=== PATIENT | male | born 1995 | race Hispanic/Latino ===

== ENCOUNTER 2018-09-23 12:11 | Emergency (ER) | payer BC, OTHER ==
--- NOTE | 2018-09-23 13:36 | RAD REPORT ---
EXAM DESCRIPTION: RAD - Knee Left 3 View - 09/23/2018 1:22 pm CLINICAL HISTORY: Left knee pain status post injury FINDINGS: No fracture or dislocation is seen. Medial tissue swelling If the patient continues to have symptoms to suggest an occult fracture, ligamentous or meniscal inju ry then MRI would be recommended
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
--- NOTE | 2018-09-23 14:19 | RAD REPORT ---
EXAM DESCRIPTION: RAD - Lumbar Spine 3 Views - 09/23/2018 2:00 pm CLINICAL HISTORY: Back pain FINDINGS: The alignment of the lumbar spine is satisfactory. No fracture or dislocation is seen. No significant bone or joint abnormality seen
[2018-09-23 14:52] VITALS: BP 126/77; TEMP 97.5; O2SAT 98
== END 2018-09-23 14:45 | disposition home or self-care (01) ==
LOC: ER 12:11
DX: S80.02XA Contusion of left knee, initial encounter (principal); M54.5 Low back pain; V28.0XXA Motorcycle driver injured in noncollision transport accident in nontraffic accident, initial encounter
CPT/HCPCS: 72100; 99282

== ENCOUNTER 2018-11-16 06:33 | Day surgery (SDC) | payer BC ==
[2018-11-13 16:21] LABS: Basophils % 0.5 % (0-1.3); Hematocrit 40.7 % (39.6-49.0); MPV 8.5 fL (7.6-11.3); RBC Red Blood Cell Count 4.43 M/uL (4.33-5.43)
[2018-11-13 16:26] LABS: Protime INR 0.99
[2018-11-13 16:48] LABS: BUN Blood Urea Nitrogen 12 mg/dL (7-18); Bicarbonate 25 mmol/L (21-32); Glucose Level 102 mg/dL (74-106); Potassium 3.8 mmol/L (3.5-5.1); Sodium Level 141 mmol/L (136-145)
--- NOTE | 2018-11-14 07:12 | EKG ---
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
--- OUTSIDE RECORDS SUMMARY | 2018-11-16 06:35 | XMS REPORT ---
:1995 Author Organization e[employer] Care Team Providers Name Role Phone Rakan Santana Provider Role Unavailable Allergies No Known Allergies Problems Problem Type Condition Code Onset Dates Condition Status Problem Closed osteochondral fracture of S72.492D Active distal end of left femur with routine healing, subsequent encounter Problem Traumatic hemarthrosis of knee, S83.92XA Active left, initial encounter Problem Bucket-handle tear of lateral S83.252A Active meniscus of left knee as current injury, initial encounter Problem Knee effusion, left M25.462 Active Problem Pain, joint, knee, left M25.562 Active Problem Sprain of lateral collateral S83.422A Active ligament of left knee, initial encounter Medications No Known Medications Results No Known Results Summary Purpose [employer]ClinicalWorks Submission
--- OUTSIDE RECORDS SUMMARY | 2018-11-16 06:35 | XMS REPORT ---
:1995 Author Organization [employer] Care Team Providers Name Role Phone SantanaRakan Provider Role Unavailable Allergies, Adverse Reactions, Alerts Substance Reaction Event Type N.K.D.A. Info Not Available Non Drug Allergy Problems Problem Type Condition Code Onset Dates Condition Status Assessment Sprain of lateral collateral S83.422A Active ligament of left knee, initial encounter Assessment Traumatic hemarthrosis of knee, S83.92XA Active left, initial encounter Problem Sprain of lateral collateral S83.422A Active ligament of left knee, initial encounter Problem Knee effusion, left M25.462 Active Problem Pain, joint, knee, left M25.562 Active Assessment Pain, joint, knee, left M25.562 Active Assessment Knee effusion, left M25.462 Active Problem Traumatic hemarthrosis of knee, S83.92XA Active left, initial encounter Medications Medication Code Code Instructions Start End Status Dosage System Date Date Tizanidine HCl NDC 84761904850 4 MG Orally Active not defined Ibuprofen NDC 01795556909 800 MG Orally Active not defined Tylenol # 3 NDC 0 300/30mg PO Q 4 September 27October Active one tab hrs prn pain 2018 Results No Known Results Summary Purpose [employer]ClinicalWorks Submission
--- OUTSIDE RECORDS SUMMARY | 2018-11-16 06:35 | XMS REPORT ---
:1995 Author Organization [employer] Care Team Providers Name Role Phone Rakan Santana Provider Role Unavailable Allergies, Adverse Reactions, Alerts Substance Reaction Event Type N.K.D.A. Info Not Available Non Drug Allergy Problems Problem Type Condition Code Onset Dates Condition Status Assessment Closed osteochondral fracture of S72.492D Active distal end of left femur with routine healing, subsequent encounter Assessment Pain, joint, knee, left M25.562 Active Assessment Bucket-handle tear of lateral S83.252A Active meniscus of left knee as current injury, initial encounter Problem Closed osteochondral fracture of S72.492D Active [...] ligament of left knee, initial encounter Medications Medication Code Code Instructions Start End Status Dosage System Date Date Tizanidine HCl ND 36788309203 4 MG Orally Active not defined Tylenol # 3 NDC 0 300/30mg PO Q 4 September 27October Active one tab hrs prn pain 2018 Tizanidine HCl NDC 32071997080 4 MG Orally October 03October Active 1 tablet every 8 hours As 2018 16, as needed needed 2018 Ibuprofen NDC 09810499391 800 MG Orally Active not defined Results No Known Results Summary Purpose [employer] Submission
--- OUTSIDE RECORDS SUMMARY | 2018-11-16 06:35 | XMS REPORT ---
:1995 Author Organization [employer] Care Team Providers Name Role Phone Dick Loomis Provider Role Unavailable Allergies, Adverse Reactions, Alerts Substance Reaction Event Type N.K.D.A. Info Not Available Non Drug Allergy Problems Problem Type Condition Code Onset Dates Condition Status Assessment Closed osteochondral fracture of S72.492A Active distal end of left femur, initial encounter Assessment Acute lateral meniscus tear of S83.282A Active left knee, initial encounter Problem Closed osteochondral fracture of [...] Start End Status Dosage System Date Date Ibuprofen NDC 92650792741 800 MG Orally Active not defined Tylenol # 3 NDC 0 300/30mg PO Q 4 September 27October Active one tab hrs prn pain 2018 Tizanidine HCl NDC 41987240926 4 MG Orally October 03October Active 1 tablet every 8 hours As 2018 16, as needed needed 2018 Results No Known Results Summary Purpose [employer]ClinicalWorks Submission
--- OUTSIDE RECORDS SUMMARY | 2018-11-16 06:35 | XMS REPORT ---
:1995 Author Organization [employer] Care Team Providers Name Role Phone Dick Loomis Provider Role Unavailable Allergies, Adverse Reactions, Alerts Substance Reaction Event Type N.K.D.A. Info Not Available Non Drug Allergy Problems Problem Type Condition Code Onset Dates Condition Status Assessment Acute lateral meniscus tear of S83.282A Active left knee, initial encounter Assessment Pain in joint of left knee M25.562 Active Assessment Closed osteochondral fracture of S72.492A Active distal end of left femur, initial encounter Problem Closed osteochondral fracture of [...] left knee, initial encounter Medications Medication Code System Code Instructions Start Date End Date Status Dosage Ibuprofen [facility] 82328966393 800 MG Orally Active not defined Results No Known Results Summary Purpose eClinicalWorks Submission
--- OUTSIDE RECORDS SUMMARY | 2018-11-16 06:35 | XMS REPORT ---
:1995 Author Organization [employer] Care Team Providers Name Role Phone Rakan Santana Provider Role Unavailable Allergies No Known Allergies Problems Problem Type Condition Code Onset Dates Condition Status Problem Sprain of lateral collateral S83.422A Active ligament of left knee, initial encounter Problem Knee effusion, left M25.462 Active Problem Pain, joint, knee, left M25.562 Active Problem Traumatic hemarthrosis of knee, S83.92XA Active left, initial encounter Medications No Known Medications Results No Known Results Summary Purpose [employer]ClinicalWorks Submission
[2018-11-16] MEDS ORDERED: Ringers Lactate 1,000 ML IV ONE ×2 (06:44→08:45)
[2018-11-16] MEDS ORDERED: CEFAZOLIN/SWI 2gm 2 GM/20 ML SYR ONE (06:44)
[2018-11-16] MEDS ORDERED: FENTANYL CITR 100 MCG/2 ML ONE ×2 (07:16→08:01)
[2018-11-16] MEDS ORDERED: PROPOFOL 200 MG/20 ML VIAL IV ONE ×2 (07:16→07:50)
[2018-11-16] MEDS ORDERED: MIDAZOLAM HCL 2 MG/2 ML INJ ONE (07:17)
[2018-11-16] MEDS ORDERED: LIDOCAINE 2% MPF 5 ML VIAL ONE (07:18)
[2018-11-16] MEDS ORDERED: ONDANSETRON 4 MG/2 ML VIAL ONE (07:18)
[2018-11-16] MEDS ORDERED: BUPIVACAINE 0.25% PF 30 ML VIAL ONE (07:22)
[2018-11-16] MEDS ORDERED: ROCURONIUM 50 MG/5 ML VIAL IV ONE (07:39)
[2018-11-16] MEDS ORDERED: BUPIVACA 0.5%/EPI 0.0005%/PF 30 ML VIAL ONE (08:41)
[2018-11-16] MEDS ORDERED: KETOROLAC 30 MG/ML INJ ONE (09:07)
[2018-11-16] MEDS ORDERED: MEPERIDINE HCL 25 MG/0.5 ML ONE (09:09)
[2018-11-16] MEDS ORDERED: SUCCINYLCHOLINE 20 MG/ML (10 ML) IV ONE (09:26)
--- NOTE | 2018-11-16 09:30 | P.BOP ---
Preoperative diagnosis: left knee lateral meniscus tear, left knee osteochondral injury Postoperative diagnosis: same Primary procedure: left knee arthroscopic partial lateral meniscectomy Secondary procedure: left knee arthroscopic microfracture lateral femoral condyle Other procedure(s): left knee arthroscopic removal of loose body Field Tax Auditor: NONE,NONE Estimated blood loss: <10 cc Specimen: none Findings: see dictation Anesthesia: General Complications: None Implants: none Fluids & blood products: per anesthesia record; TT: 56 mins @300 mmHg Transferred to: Recovery Room Condition: Good
[2018-11-16] MEDS: HYDROMORPHONE HCL 1 MG/ML INJ ONE ×2 (09:43→09:51)
[2018-11-16] MEDS ORDERED: HYDROCODONE/APAP 7.5/325 MG TAB ONE (10:41)
[2018-11-16 10:55] VITALS: BP 134/75; TEMP 97.2; O2SAT 98
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
== END 2018-11-16 11:56 | disposition home or self-care (01) ==
LOC: OR 06:33
PROVIDERS: ATTEND Orthopaedic Surgery Sports Medicine
PROC: 0SQD4ZZ Repair Left Knee Joint, Percutaneous Endoscopic Approach (ICD-10-PCS; 2018-11-16)
PROC: 0SBD4ZZ Excision of Left Knee Joint, Percutaneous Endoscopic Approach (ICD-10-PCS; principal; 2018-11-16 07:30)
DX: S83.272A Complex tear of lateral meniscus, current injury, left knee, initial encounter (principal); M94.8X8 Other specified disorders of cartilage, other site; V86.56XA Driver of dirt bike or motor/cross bike injured in nontraffic accident, initial encounter
CPT/HCPCS: 29881; 29879; 93005; 85025; 80048; 36415; 85610; 85730; J2704 ×2; J0330; J2250; J3010 ×2; J2175; J1170; J0690; J2405

== ENCOUNTER 2019-04-14 17:40 | Emergency (ER) | payer BC ==
--- OUTSIDE RECORDS SUMMARY | 2019-04-14 17:42 | XMS REPORT ---
[...] Start Date End Date Status Dosage Ibuprofen [facility] 33213574344 800 MG Orally Active not defined Results No Known Results Summary Purpose [employer]ClinicalWorks Submission
[2019-04-14] MEDS ORDERED: TETANUS & DIPHTHERIA TOX,ADULT 0.5 ML VIAL ONE (18:04)
--- NOTE | 2019-04-14 18:40 | ER ---
Nurse's Notes [facility] Name: Harsha Talley Age: 24 yrs Sex: Male : 1995 Arrival Date: 04/14/2019 Time: 17:43 Bed 5 Private MD: Diagnosis: Laceration without foreign body of left thumb without damage to nail Presentation: 04/14 17:46 Presenting complaint: Patient states: Sliced skin of the L thumb yesterday with an axe. ca1 Did not seek consult. Applied pressure and dressing. But continued to bleed today. Noted soaked gauze dressing in Triage. Transition of care: patient was not received from another setting of care. Onset of symptoms was April 13, 2019. Risk Assessment: Do you want to hurt yourself or someone else? Patient reports no desire to harm self or others. Initial Sepsis Screen: Does the patient meet any 2 criteria? No. Patient's initial sepsis screen is negative. Does the patient have a suspected source of infection? No. Patient's initial sepsis screen is negative. Care prior to arrival: None. 17:46 Method Of Arrival: Ambulatory ca1 17:46 Acuity: LUTHER 3 ca1 Historical: - Allergies: 17:50 No Known Allergies; ca1 - Home Meds: 17:50 None [Active]; ca1 - PMHx: 17:50 None; ca1 - PSHx: 17:50 Knee surgery; ca1 - Immunization history:: Adult Immunizations up to date, Last tetanus immunization: < 5 years ago Flu vaccine is up to date. - Social history:: Smoking status: Patient/guardian denies using tobacco. - Ebola Screening: : Patient negative for fever greater than or equal to 101.5 degrees Fahrenheit, and additional compatible Ebola Virus Disease symptoms Patient denies exposure to infectious person Patient denies travel to an Ebola-affected area in the 21 days before illness onset No symptoms or risks identified at this time. Screenin:58 Abuse screen: Denies threats or abuse. Nutritional screening: No deficits noted. tw2 Tuberculosis screening: No symptoms or risk factors identified. Fall Risk None identified. Assessment: 17:58 Reassessment: provider at bedside at this time. tw2 18:14 General: Appears in no apparent distress. obese, Behavior is calm, cooperative, tw2 appropriate for age. Pain: Complains of pain in dorsal aspect of proximal phalanx of left thumb. Neuro: Level of Consciousness is awake, alert, obeys commands, Oriented to person, place, time, situation. Cardiovascular: Patient's skin is warm and dry. Respiratory: Airway is patent Respiratory effort is even, unlabored, Respiratory pattern is regular, symmetrical. GI: No signs and/or symptoms were reported involving the gastrointestinal system. : No signs and/or symptoms were reported regarding the genitourinary system. EENT: No signs and/or symptoms were reported regarding the EENT system. Derm: No signs and/or symptoms reported regarding the dermatologic system. Musculoskeletal: No signs and/or symptoms reported regarding the musculoskeletal system. Injury Description: Abrasion sustained to aliyah size dorsal aspect of proximal phalanx of left thumb avulsion was sustained 1 day ago. 19:16 Reassessment: Patient appears in no apparent distress at this time. Patient and/or tw2 family updated on plan of care and expected duration. Pain level reassessed. Patient is alert, oriented x 3, equal unlabored respirations, skin warm/dry/pink. need re-evaluation PRIOR to discharge. 19:45 Reassessment: Patient appears in no apparent distress at this time. Patient is alert, aa1 oriented x 3, equal unlabored respirations, skin warm/dry/pink. Bleeding controlled at this time. Dressing to L thumb D\T\I. Discussed d/c \T\ f/u instructions with pt; denies questions or concerns at this time. Ambulatory to lobby with steady gait. Vital Signs: 17:50 BP 136 / 75; Pulse 86; Resp 17 S; Temp 98(TE); Pulse Ox 99% on R/A; Weight 145.15 kg ca1 (R); Height 6 ft. 1 in. (185.42 cm) (R); Pain 8/10; 19:45 BP 130 / 65; Pulse 85; Resp 16; Temp 97.9; Pulse Ox 98% on R/A; Pain 0/10; aa1 17:50 Body Mass Index 42.22 (145.15 kg, 185.42 cm) ca1 ED Course: 17:43 Patient arrived in ED. rg4 17:49 Triage completed. ca1 17:50 Arm band placed on right wrist. ca1 17:53 Joseph Cortés PA is PHCP. cp 17:53 Joseph Rae MD is Attending Physician. cp 17:57 Caroline Bonds, RN is Primary Nurse. tw2 17:58 Bed in low position. Call light in reach. tw2 18:36 XRAY Finger-Thumb Left In Process Unspecified. EDMS 19:12 Dressings: surgicel, 4x4's, coban with digit splint applied to LEFT thumb at this time, tw2 moderate amount of bleeding note through first gauze compression dressing, C,KHALIF Cortés notified, would like pressure dressing applied and pt bleeding re-evaluated in 15 minutes, JESUS Powell notified as well as JESUS Haines, need discharge papers to be signed PRIOR to pt leaving after re-evaluation. 19:45 No provider procedures requiring assistance completed. Patient did not have IV access aa1 during this emergency room visit. 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 Exp: 04/25/2021. Lot #: [id number]. } Route: IM; Site: right deltoid; 18:59 Follow up: Response: No adverse reaction tw2 Outcome: 18:38 Discharge ordered by . cp 19:45 Discharged to home ambulatory, with friend. aa1 19:45 Condition: good 19:45 Discharge instructions given to patient, friend, Instructed on discharge instructions, follow up and referral plans. medication usage, wound care, Demonstrated understanding of instructions, follow-up care, medications, wound care, Prescriptions given X 1. 19:49 Patient left the ED. aa1 Signatures: Dispatcher [employer] EDMS Yancy Isbell, RN RN aa1 Joseph Cortés PA PA cp Wise, Tara, RN RN tw2 Sunshine Cuellar 4 Sherry Coon RN RN ca1
--- NOTE | 2019-04-14 18:40 | EDPHYS ---
Physician Documentation [facility] Name: Harsha Talley Age: 24 yrs Sex: Male : 1995 Arrival Date: 04/14/2019 Time: 17:43 Bed 5 Private MD: OPAL Physician Joseph Rae HPI: 04/14 18:00 This 24 yrs old Male presents to ER via Ambulatory with complaints of Finger cp Laceration. 18:00 The patient or guardian reports injury, a laceration, irregular. The complaints affect cp the dorsal aspect of proximal phalanx of left thumb. 18:00 Context: resulted from using ax to chop wood. Onset: The symptoms/episode cp began/occurred yesterday. Associated signs and symptoms: Pertinent negatives: cyanosis distally, decreased sensation distally, fever. Patient reports he was using ax when injury occurred and bleeding has persisted since injury. Historical: - Allergies: 17:50 No Known Allergies; ca1 - Home Meds: 17:50 None [Active]; ca1 - PMHx: 17:50 None; ca1 - PSHx: 17:50 Knee surgery; ca1 - Immunization history:: Adult Immunizations up to date, Last tetanus immunization: < 5 years ago Flu vaccine is up to date. - Social history:: Smoking status: Patient/guardian denies using tobacco. - Ebola Screening: : Patient negative for fever greater than or equal to 101.5 degrees Fahrenheit, and additional compatible Ebola Virus Disease symptoms Patient denies exposure to infectious person Patient denies travel to an Ebola-affected area in the 21 days before illness onset No symptoms or risks identified at this time. ROS: 18:05 Constitutional: Negative for chills, fever. cp 18:05 Eyes: Negative for injury, pain, redness, and discharge. cp 18:05 Cardiovascular: Negative for chest pain. 18:05 Respiratory: Negative for cough, shortness of breath. 18:05 Skin: Positive for laceration(s), of the dorsal aspect of proximal phalanx of left thumb. 18:05 Neuro: Negative for numbness. 18:05 All other systems are negative. Exam: 18:12 Constitutional: The patient appears in no acute distress, alert, awake, well developed, cp well nourished. 18:12 Head/Face: Normocephalic, atraumatic. cp 18:12 Musculoskeletal/extremity: ROM: full active range of motion, in the left thumb, Perfusion: the extremity is normally perfused throughout, Sensation intact. Tendon exam: specific tendon testing normal through active and passive range of motion 18:12 Skin: injury, avulsion(s), a small of the dorsal aspect of proximal phalanx of left thumb, that can be described as clean, no foreign body, irregular, with moderate bleeding. Vital Signs: 17:50 BP 136 / 75; Pulse 86; Resp 17 S; Temp 98(TE); Pulse Ox 99% on R/A; Weight 145.15 kg ca1 (R); Height 6 ft. 1 in. (185.42 cm) (R); Pain 8/10; 19:45 BP 130 / 65; Pulse 85; Resp 16; Temp 97.9; Pulse Ox 98% on R/A; Pain 0/10; aa1 17:50 Body Mass Index 42.22 (145.15 kg, 185.42 cm) ca1 MDM: 17:56 Patient medically screened. sade 18:15 Differential diagnosis: open fracture, simple laceration, skin avulsion, cellulitis. cp 18:38 Data reviewed: vital signs, nurses notes, and as a result, I will discharge patient. cp 18:38 Response to treatment: the patient's symptoms have markedly improved after treatment, cp pressure dressing applied, finger splinted and bleeding controlled, and as a result, I will discharge patient. 18:40 Test interpretation: by ED physician or midlevel provider: plain radiologic studies, cp xray left thumb negative for fracture. 04/14 17:58 Order name: XRAY Finger-Thumb Left; Complete Time: 19:04 cp 04/14 19:05 Interpretation: Report reviewed. 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 Exp: tw2 04/25/2021. Lot #: [id number]. } Route: IM; Site: right deltoid; 18:59 Follow up: Response: No adverse reaction tw2 Disposition: 04/15 09:35 Co-signature as Attending Physician, Joseph Rae MD I agree with the assessment and [facility] plan of care. Disposition: 04/14/19 18:38 Discharged to Home. Impression: Laceration without foreign body of left thumb without damage to nail. - Condition is Stable. - Discharge Instructions: Laceration Care, Adult. - Prescriptions for Keflex 500 mg Oral Capsule - take 1 capsule by ORAL route every 8 hours for 10 days; 30 capsule. - Medication Reconciliation Form, Thank You Letter, Antibiotic Education, Prescription Opioid Use, Work release form form. - Follow up: Private Physician; When: 2 - 3 days; Reason: Wound Recheck. - Problem is new. - Symptoms have improved. Signatures: Dispatcher [employer] EDYancy Talbert RN RN aa1 Joseph Rae MD MD cha Page, Corey, PA PA cp Wise, Tara RN RN tw2 Sherry Coon RN RN ca1 Corrections: (The following items were deleted from the chart) 04/14 19:49 18:38 04/14/2019 18:38 Discharged to Home. Impression: Laceration without foreign body aa1 of left thumb without damage to nail. Condition is Stable. Forms are Work release form, Medication Reconciliation Form, Thank You Letter, Antibiotic Education, Prescription Opioid Use. Follow up: Private Physician; When: 2 - 3 days; Reason: Wound Recheck. Problem is new. Symptoms have improved. cp
--- NOTE | 2019-04-14 18:59 | RAD REPORT ---
EXAM DESCRIPTION: CR - Finger-Thumb Left - 04/14/2019 6:39 pm CLINICAL HISTORY: cut with ax Laceration COMPARISON: No comparisons FINDINGS: No fracture or foreign body is seen involving the left first digit. Mild soft tissue swell ing evident.
[2019-04-14 19:56] VITALS: BP 130/65; TEMP 97.9; O2SAT 98
== END 2019-04-14 19:49 | disposition home or self-care (01) ==
LOC: ER 17:40
DX: S61.012A Laceration without foreign body of left thumb without damage to nail, initial encounter (principal); W26.8XXA Contact with other sharp object(s), not elsewhere classified, initial encounter; Y93.89 Activity, other specified; Y92.9 Unspecified place or not applicable; Z23 Encounter for immunization
CPT/HCPCS: 90471; 90714; 99283

== ENCOUNTER → 2023-05-14 | Emergency (ER) | payer SELFPAY ==
--- OUTSIDE RECORDS SUMMARY | 2023-05-14 10:45 | XMS REPORT | Continuity of Care Document ---
Author Name Unknown Address [address] [place] [id number] [facility] thconnect Address 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 Name Role Phone ROSE RUBIO Attending Clinician Unavailabl e Payers Payer Name Policy Type Policy Number Effective Date Expirati on Date Source Problems Condition Name Condition Details Condition Category Status Onset Date Resolution Date Last Treatment Date Treating Clinician Comments Source Sprain of lateral collateral ligament of left knee, initial encounter Sprain of lateral collateral ligament of left knee, initial encounter Problem Active [facility] Traumatic hemarthros is of knee, left, initial encounter Traumatic hemarthros is of knee, left, initial encounter Problem Active [facility] Knee effusion, left Knee effusion, left Problem Active [facility] Pain, joint, knee, left Pain, joint, knee, left Problem Active [facility] Closed osteochond ral fracture of distal end of left femur with routine healing, subsequent encounter Closed osteochond ral fracture of distal end of left femur with routine healing, subsequent encounter Problem Active [facility] Bucket-reynolds dle tear of lateral meniscus of left knee as current injury, initial encounter Bucket-reynolds dle tear of lateral meniscus of left knee as current injury, initial encounter Problem Active [facility] Acute lateral meniscus tear of left knee, initial encounter Acute lateral meniscus tear of left knee, initial encounter Diagnosis [facility] Closed osteochond ral fracture of distal end of left femur, initial encounter Closed osteochond ral fracture of distal end of left femur, initial encounter Diagnosis Active [facility] Social History Social Habit Start Date Stop Date Quantity Comments Source [facility] Smoking Status Start Date Stop Date Source Unknown if ever smoked [facility] Medications Ordered Medication Name Filled Medication Name Start Date Stop Date Current Medication? Ordering Clinician Indication Dosage Frequency Signature (SIG) Comments Components Source Ibuprofen Ibuprofen Yes Dick Loomis not defined [facility] Procedures Procedure Date / Time Performed Performing Clinicia n Source Infectious agent detection b y nucleic acid (DNA or 2019-10-21 00:00:00 [facility] Encounters Start Date/Time End Date/Time Encounter Type Admission Type Attending Clinicians Care Facility Care Department Encounter ID Source 2022-08-17 11:45:22 Outpatient [facility] [id number] [facility] 2019-10-21 15:45:00 2019-10-21 15:45:00 Outpatient [facility] [id number] [facility] 2019-10-21 00:00:00 2019-10-21 00:00:00 Outpatient ROSE RUBIO [facility] [id number] [facility] 2019-10-21 00:00:00 2019-10-21 00:00:00 Outpatient ROSE RUBIO [facility] [id number] [facility] 2018-12-06 14:30:00 2018-12-06 14:30:00 Outpatient [facility] [id number] [facility] 2018-11-22 14:30:00 2018-11-22 14:30:00 Outpatient [facility] [id number] [facility] 2018-11-19 15:53:00 2018-11-19 15:53:00 Outpatient [facility] [id number] [facility] 2018-11-05 10:30:00 2018-11-05 10:30:00 Outpatient [facility] [id number] [facility] 2018-10-15 08:30:00 2018-10-15 08:30:00 Outpatient [facility] [id number] [facility] 2018-10-09 13:16:00 2018-10-09 13:16:00 Outpatient [facility] [id number] [facility] 2018-10-03 14:00:00 2018-10-03 14:00:00 Outpatient [facility] [id number] [facility] 2018-09-28 12:01:00 2018-09-28 12:01:00 Outpatient [facility] [id number] [facility] 2018-09-27 08:30:00 2018-09-27 08:30:00 Outpatient [facility] [id number] [facility] Results Test Description Test Time Test Comments Results Result Co mments Source [facility] Description: SARS-CoV-2 (COVID-19) RNA [Presence] in Unspecified specimen by HERLINDA with probe [id number] 01:28:00* Test Item Value Reference Range Interpretation Comme nts SARS-CoV-2, HERLINDA (test code = 09668-4) Not Detected Not Detected This test was de veloped and its performance characteristics determinedby [employer]. This test has not been FDA cleared orapproved. This test has been authorized by FDA under an Emergency UseAuthorization (EUA). This test is only authorized for the duration oftime the declaration that circumstances exist justifying theauthorization of the emergency use of in vitro diagnostic tests fordetection of SARS-CoV-2 virus and/or diagnosis of COVID-19 infectionunder section 564(b)(1) of the Act, 21 U.S.C. 360bbb-3(b)(1), unlessthe authorization is terminated or revoked sooner.When diagnostic testing is negative, the possibility of a falsenegative result should be considered in the context of a patient'srecent exposures and the presence of clinical signs and symptomsconsistent with COVID-19. An individual without symptoms of COVID-19and who is not shedding SARS-CoV-2 virus would expect to have anegative (not detected) result in this assay.

Performed by:
[employer] ([employer])

[facility] Description: SARS-CoV-2 (COVID-19) RNA [Presence] in Unspecified specimen by HERLINDA with probe [id number] 01:28:00* Test Item Value Reference Range Interpretation Comme nts SARS-CoV-2, HERLINDA (test code = 17443-4) Not Detected Not Detected This test was de veloped and its performance characteristics determinedby [employer]. This test has not been FDA cleared orapproved. This test has been authorized by FDA under an Emergency UseAuthorization (EUA). This test is only authorized for the duration oftime the declaration that circumstances exist justifying theauthorization of the emergency use of in vitro diagnostic tests fordetection of SARS-CoV-2 virus and/or diagnosis of COVID-19 infectionunder section 564(b)(1) of the Act, 21 U.S.C. 360bbb-3(b)(1), unlessthe authorization is terminated or revoked sooner.When diagnostic testing is negative, the possibility of a falsenegative result should be considered in the context of a patient'srecent exposures and the presence of clinical signs and symptomsconsistent with COVID-19. An individual without symptoms of COVID-19and who is not shedding SARS-CoV-2 virus would expect to have anegative (not detected) result in this assay.

Performed by:
[employer] ([employer])

[employer] [facility]
--- NOTE | 2023-05-14 11:34 | RAD REPORT ---
EXAM DESCRIPTION: RAD - Foot Right 3 View - 05/14/2023 11:14 am CLINICAL HISTORY: Right foot pain status post injury FINDINGS: No fracture or dislocation is seen
--- NOTE | 2023-05-14 11:46 | EDPHYS ---
Physician Documentation [facility] Name: Harsha Talley Age: 28 yrs Sex: Male : 1995 Arrival Date: 05/14/2023 Time: 10:42 Bed 19 Private MD: ED Physician Niyah Navas HPI: 05/14 11:00 This 28 yrs old Male presents to ER via Unassigned with complaints of Foot sp3 Injury. 11:00 28-year-old male with no past medical history presents with right foot pain secondary sp3 to crush injury log fell on his foot yesterday evening. Patient states it hurt all night and today he presents to the ED for evaluation. No break in the skin or bleeding reported. Patient states he cannot walk on it and he has been "hopping around at home". He denies any toe pain, heel pain, ankle pain, knee pain or any other proximal extremity pain. Review of systems otherwise negative for fever, head injury, chest pain, shortness with, abdominal pain, back pain, other extremity injury or pain, or any other signs or symptoms at this time.. Historical: - Allergies: 11:09 No Known Allergies; hb - Home Meds: 11:09 None [Active]; hb - PMHx: 11:09 None; hb - PSHx: 11:09 None; hb - Immunization history:: Client reports receiving the 2nd dose of the Covid vaccine, Flu vaccine is up to date. - Social history:: Smoking status: Patient denies any tobacco usage or history of. ROS: 11:01 Constitutional: Negative for fever, chills, and weight loss, Eyes: Negative for injury, sp3 pain, redness, and discharge, Neck: Negative for injury, pain, and swelling, Cardiovascular: Negative for chest pain, palpitations, and edema, Respiratory: Negative for shortness of breath, cough, wheezing, and pleuritic chest pain, Abdomen/GI: Negative for abdominal pain, nausea, vomiting, diarrhea, and constipation, Back: Negative for injury and pain, Skin: Negative for injury, rash, and discoloration, Neuro: Negative for headache, weakness, numbness, tingling, and seizure, Psych: Negative for depression, anxiety, suicide ideation, homicidal ideation, and hallucinations, Allergy/Immunology: Negative for hives, rash, and allergies, Endocrine: Negative for neck swelling, polydipsia, polyuria, polyphagia, and marked weight changes, 11:01 All other systems are negative, Exam: 11:02 Constitutional: This is a well developed, well nourished patient who is awake, alert, sp3 and in no acute distress. Head/Face: Normocephalic, atraumatic. Chest/axilla: Normal chest wall appearance and motion. Nontender with no deformity. No lesions are appreciated. Cardiovascular: Regular rate and rhythm with a normal S1 and S2. No gallops, murmurs, or rubs. Normal PMI, no JVD. No pulse deficits. Respiratory: Lungs have equal breath sounds bilaterally, clear to auscultation and percussion. No rales, rhonchi or wheezes noted. No increased work of breathing, no retractions or nasal flaring. Abdomen/GI: Soft, non-tender, with normal bowel sounds. No distension or tympany. No guarding or rebound. No evidence of tenderness throughout. Back: No spinal tenderness. No costovertebral tenderness. Full range of motion. Skin: Warm, dry with normal turgor. Normal color with no rashes, no lesions, and no evidence of cellulitis. Neuro: Awake and alert, GCS 15, oriented to person, place, time, and situation. Cranial nerves II-XII grossly intact. Motor strength 5/5 in all extremities. Sensory grossly intact. Cerebellar exam normal. Normal gait. Psych: Awake, alert, with orientation to person, place and time. Behavior, mood, and affect are within normal limits. 11:02 Musculoskeletal/extremity: Patient has pain to palpation with mild swelling noted on the top of the right foot proximal to the toes but distal to the talus. Patient nonambulatory and weightbearing not tested. Distal neurovascular exam and capillary refill are normal.. Vital Signs: 11:00 BP 138 / 82; Pulse 86; Resp 16; Temp 98.1; Pulse Ox 100% on R/A; Weight 149.69 kg; hb Height 6 ft. 1 in. ; Pain 10/10; 11:00 Body Mass Index 43.54 (149.69 kg, 185.42 cm) hb 11:00 Pain Scale: Adult hb MDM: 11:00 Patient medically screened. sp3 11:02 Data reviewed: vital signs, nurses notes, radiologic studies. ED course: Fracture sp3 versus contusion of the right foot. X-rays pending and disposition will be based on that.. 11:43 ED course: X-ray demonstrates no fracture or dislocation. We will place in an Malik wrap sp3 and put patient on crutches with follow-up with orthopedics. Discharged on diclofenac p.o.. 05/14 11:00 Order name: Foot Right 3 View XRAY; Complete Time: 11:41 sp3 05/14 11:00 Order name: NPO; Complete Time: 11:12 sp3 05/14 11:44 Order name: Malik Wrap: Right foot sp3 05/14 11:44 Order name: Crutches sp3 Administered Medications: No medications were administered Disposition Summary: 05/14/23 11:45 Discharge Ordered Notes: Location: Home sp3 Condition: Stable sp3 Diagnosis - Right foot crush injury, contusion sp3 Followup: sp3 - With: Aaron Kay MD - When: Upon discharge from the Emergency Department - Reason: Recheck today's complaints Discharge Instructions: - Discharge Summary Sheet sp3 - Foot Contusion sp3 - Crutch Use, Adult sp3 Forms: - Work release form eb - Medication Reconciliation Form sp3 - Thank You Letter sp3 - Antibiotic Education sp3 - Prescription Opioid Use sp3 - Patient Portal Instructions sp3 - Leadership Thank You Letter sp3 Prescriptions: - Diclofenac Sodium 75 mg Oral Tablet Sustained Release - take 1 tablet ORAL route 2 times per day; 30 tablet; Refills: 0, Product sp3 Selection Permitted Signatures: Dispatcher [employer] EDAdore Livingston RN RN Niyah Logan MD MD sp3
--- NOTE | 2023-05-14 11:46 | ER ---
Nurse's Notes [facility] Name: Harsha Talley Age: 28 yrs Sex: Male : 1995 Arrival Date: 05/14/2023 Time: 10:42 Bed 19 Private MD: Diagnosis: Right foot crush injury, contusion Presentation: 05/14 11:00 Chief complaint: Tree limb weighting approx 100 pounds fell onto right foot yesterday, hb c/o foot pain 01/17. Unable to bear weight. Coronavirus screen: At this time, the client does not indicate any symptoms associated with coronavirus-19. Ebola Screen: No symptoms or risks identified at this time. Initial Sepsis Screen: Does the patient meet any 2 criteria? No. Patient's initial sepsis screen is negative. Does the patient have a suspected source of infection? No. Patient's initial sepsis screen is negative. Risk Assessment: Do you want to hurt yourself or someone else? Patient reports no desire to harm self or others. Onset of symptoms was May 13, 2023. 11:00 Method Of Arrival: Wheelchair hb 11:00 Acuity: LUTHER 4 hb Historical: - Allergies: 11:09 No Known Allergies; hb - Home Meds: 11:09 None [Active]; hb - PMHx: 11:09 None; hb - PSHx: 11:09 None; hb - Immunization history:: Client reports receiving the 2nd dose of the Covid vaccine, Flu vaccine is up to date. - Social history:: Smoking status: Patient denies any tobacco usage or history of. Screenin:15 [facility] ED Fall Risk Assessment (Adult) History of falling in the last 3 months, db including since admission No falls in past 3 months (0 pts) Score/Fall Risk Level 0 - 2 = Low Risk Oriented to surroundings, Maintained a safe environment. Abuse screen: Denies threats or abuse. Denies injuries from another. Nutritional screening: No deficits noted. Tuberculosis screening: No symptoms or risk factors identified. Assessment: 11:15 Pain: Complains of pain in right foot. Neuro: Level of Consciousness is awake, alert, db obeys commands, Oriented to person, place, time, situation. 11:30 Reassessment: Patient appears in no apparent distress at this time. Patient and/or db family updated on plan of care and expected duration. Pain level reassessed. Patient is alert, oriented x 3, equal unlabored respirations, skin warm/dry/pink. General: Appears in no apparent distress. comfortable, Behavior is calm, cooperative. 11:55 Reassessment: PATIENT REFUSED CRUTCHES STATES HAS CRUTCHES AT HOME. db Vital Signs: 11:00 BP 138 / 82; Pulse 86; Resp 16; Temp 98.1; Pulse Ox 100% on R/A; Weight 149.69 kg; hb Height 6 ft. 1 in. ; Pain 10/10; 11:00 Body Mass Index 43.54 (149.69 kg, 185.42 cm) hb 11:00 Pain Scale: Adult hb ED Course: 10:44 Patient arrived in ED. mg5 10:55 Sharon Boudreaux, RN is Primary Nurse. db 10:58 Niyah Navas MD is Attending Physician. sp3 11:09 Triage completed. hb 11:10 Arm band placed on. hb 11:15 Patient has correct armband on for positive identification. Call light in reach. Side db rails up X 1. 11:16 Foot Right 3 View XRAY In Process Unspecified. EDMS 11:44 Aaron Kay MD is Referral Physician. sp3 Administered Medications: No medications were administered Medication: 11:15 VIS not applicable for this client. db Outcome: 11:45 Discharge ordered by . sp3 12:07 Patient left the ED. hb Signatures: Dispatcher [employer] EDMS Adore Mota RN RN Niyah Navas MD MD sp3 Sharon Boudreaux, RN RN db Emily Moses mg5 Corrections: (The following items were deleted from the chart) 11:56 11:30 Reassessment: Patient appears in no apparent distress at this time. Patient db and/or family updated on plan of care and expected duration. Pain level reassessed. Patient is alert, oriented x 3, equal unlabored respirations, skin warm/dry/pink. db
[2023-05-14 12:23] VITALS: BP 138/82; TEMP 98.1; O2SAT 100
== END ==
LOC: ER 10:42
DX: S90.31XA Contusion of right foot, initial encounter (principal)